=== PATIENT | female | born 1985 | race Two or more races ===

== ENCOUNTER 2021-10-14 14:15 | Emergency (ER) | payer SELFPAY ==
[~2021-10-14] VITALS: Ht 157.5 cm; Wt 76.0 kg
[2021-10-14 17:21] VITALS: BP 115/92
[2021-10-14] MEDS ORDERED: IBUPROFEN 200 MG TABLET. PO ONE (17:30)
[2021-10-14] MEDS ORDERED: DEXAMETHASONE 4 MG TABLET PO ONE (17:30)
[2021-10-14] MEDS ORDERED: ONDANSETRON ODT 4 MG TAB.RAPDIS. PO ONE (17:30)
--- NOTE | 2021-10-14 17:51 | PHYS DOC ---
Past Medical History Past Surgical History: No Surgical History Smoking Status: Never Smoker Alcohol Use: None General Adult EDM: Chief Complaint: FLU SYMPTOM HPI: HPI: Patient is a 36 year old female who presents with 10 days of cough, body aches, headache, chills and nausea. Patient was just here earlier today with her child that is positive for influenza A. Patient last took Tylenol earlier this morning. Denies any past medical history. 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 Denies chest pain, shortness of air, abdominal pain, vomiting, diarrhea, syncope, dizziness, vision change, numbness tingling, focal weakness. Review of Systems: Review of Systems: Constitutional: Denies fever or +chills. [] Eyes: Denies change in visual acuity. [] HENT: +nasal congestion or denies sore throat. [] Respiratory: + cough or denies shortness of breath. [] Cardiovascular: Denies chest pain or edema. [] GI: Denies abdominal pain, +nausea, denies vomiting, bloody stools or diarrhea. [] : Denies dysuria. [] Musculoskeletal: Denies back pain or joint pain. + Generalized body aches [] Integument: Denies rash. [] Neurologic: + headache, denies focal weakness or sensory changes. [] Endocrine: Denies polyuria or polydipsia. [] Lymphatic: Denies swollen glands. [] Psychiatric: Denies depression or anxiety. [] Heart Score: C/O Chest Pain: No Current Medications: Current Medications Medications (Trade) Dose Ordered Sig/Nicholas Start Time Stop Time Status Last Admin Dose Admin Dexamethasone (Decadron) 10 mg 1X ONCE 10/14/21 17:30 10/14/21 17:31 DC Ibuprofen (Motrin) 600 mg 1X ONCE 10/14/21 17:30 10/14/21 17:31 DC Ondansetron HCl (Zofran Odt) 4 mg 1X ONCE 10/14/21 17:30 10/14/21 17:31 DC Allergies: Allergies: Allergies Coded Allergies Type Severity Reaction Last Updated Verified No Known Drug Allergies 10/14/21 No Physical Exam: PE: Constitutional: Well developed, well nourished, no acute distress, non-toxic appearance. [] HENT: Normocephalic, atraumatic, bilateral external ears normal, oropharynx moist, no oral exudates, nose normal. [] Eyes: PERRLA, EOMI, conjunctiva normal, no discharge. [] Neck: Normal range of motion, no tenderness, supple, no stridor. [] Cardiovascular:Heart rate regular rhythm, no murmur [] Lungs & Thorax: Bilateral breath sounds clear to auscultation [] Abdomen: Bowel sounds normal, soft, no tenderness, no masses, no pulsatile masses. [] Skin: Warm, dry, no erythema, no rash. [] Back: No tenderness, no CVA tenderness. [] Extremities: No tenderness, no cyanosis, no clubbing, ROM intact, no edema. [] Neurologic: Alert and oriented X 3, normal motor function, normal sensory function, no focal deficits noted. [] Psychologic: Affect normal, judgement normal, mood normal. [] Normal physical exam Current Patient Data: Vital Signs: Vital Signs Date Time Temp Pulse Resp B/P (MAP) Pulse Ox O2 Delivery O2 Flow Rate FiO2 10/14/21 17:21 99.3 89 16 115/92 (100) 100 Room Air 99.3 EKG: EKG: [] Radiology/Procedures: Radiology/Procedures: [] Impression: [facility] [address] [facility] [place], [place] [id number] IMAGING REPORT Signed PATIENT: KERON DIAMONDACCOUNT: [id number] : 1985 LOCATION: ER AGE: 36 SEX: F EXAM STATUS: REG ER ORD. PHYSICIAN: AMMY CAVANAUGH APRN REASON: cough PROCEDURE: PORTABLE CHEST 1V Exam: Chest one view INDICATION: Cough TECHNIQUE: Frontal view of the chest Comparisons: None FINDINGS: The cardiomediastinal silhouette and pulmonary vessels are within normal limits. The lung and pleural spaces are clear. IMPRESSION: No acute cardiopulmonary process. Electronically signed by: Noah Pepper MD (10/14/2021 6:57 PM) [facility] DICTATED and SIGNED BY: NOAH PEPPER MD DATE: 10/14/21 [id number] 0 Course & Med Decision Making: Course & Med Decision Making Pertinent Labs and Imaging studies reviewed. (See chart for details) COVID-19 CRITERIA: The patient was evaluated during the global COVID-19 pandemic, and that diagnosis was suspected/considered upon their initial presentation. Their evaluation, treatment and testing was consistent with current guidelines for patients who present with complaints or symptoms that may be related to COVID-19. See HPI. Alert and oriented x4. Speaks in full clear sentences. Skin pink warm and dry. Abdomen soft and nontender. Lungs are clear to auscultation all lobes. Afebrile this time. Patient is given Decadron, ibuprofen, Zofran. Influenza positive. [] Dragon Disclaimer: Dragon Disclaimer: This electronic medical record was generated, in whole or in part, using a voice recognition dictation system. COVID-19 Patient Risks: Age 65 or older: No Sign of co-morbidity: No Exp to person + for COVID: Yes Exp to PUI: No Travel from affected area: No Lower respiratory symptoms: Yes Fever: No Other: Yes (nausea, bodyaches) PPE Use: Full PPE with N95 mask or PAPR: Yes Departure Departure Impression: Primary Impression: Influenza A Disposition: 01 HOME / SELF CARE / HOMELESS Condition: STABLE Referrals: NO PCP (PCP) Patient Instructions: Cough, Adult, Fever, Adult, Influenza, Adult Additional Instructions: Drink plenty of fluids to stay hydrated. Alternate ibuprofen and Tylenol for your pain and for your fever. Rest. Return if you cannot keep down fluids or you have severe shortness of breath. AMMY CAVANAUGH MATTRESS INSPECTOR Oct 14, 2021 17:50
[2021-10-14 18:12] LABS: INFLUENZA B PATIENT NEGATIVE (NEGATIVE)
[2021-10-14 18:14] LABS: INFLUENZA A PATIENT POSITIVE (NEGATIVE)
--- NOTE | 2021-10-14 19:00 | RAD ---
Exam: Chest one view INDICATION: Cough TECHNIQUE: Frontal view of the chest Comparisons: None FINDINGS: The cardiomediastinal silhouette and pulmonary vessels are within normal limits. The lung and pleural spaces are clear. IMPRESSION: No acute cardiopulmonary process. Electronically signed by: Noah Anderson MD (10/14/2021 6:57 PM) [facility]
[2021-10-14 19:19] LABS: BILIRUBIN,URINE NEGATIVE (NEG); CLARITY,URINE CLEAR; COLOR,URINE YELLOW; NITRITE,URINE NEGATIVE (NEG); PH,URINE 5.5 (<5.0-8.0); PROTEIN,URINE NEGATIVE (NEG-TRACE); UROBILINOGEN,URINE 0.2 mg/dL (0.2 mg/dL)
[2021-10-14 19:26] LABS: BACTERIA,URINE FEW /HPF (0-FEW)
--- NOTE | 2021-10-16 12:09 | NUR ---
IP: Informed pt of negative covid test. pt verbalized understanding.
== END 2021-10-14 19:13 | disposition home or self-care (01) ==
LOC: ER 14:15
DX: J10.1 Influenza due to other identified influenza virus with other respiratory manifestations (principal); Z20.822 Contact with and (suspected) exposure to COVID-19
CPT/HCPCS: 71045; 81001; 87426; 87804; 99284; U0003; U0005